=== PATIENT | male | born 1960 | race Caucasian/White ===

== ENCOUNTER → 2016-05-17 | Outpatient (CLI) | payer OTHER | LOC: CIMAGING 10:55 | PROVIDERS: ATTEND Internal Medicine Cardiovascular Disease | DX: I25.10 Atherosclerotic heart disease of native coronary artery without angina pectoris (principal) | CPT/HCPCS: 93880-PO ==

== ENCOUNTER → 2017-01-12 | Outpatient (CLI) | payer OTHER | LOC: BMCIMAGING 17:12 | PROVIDERS: ATTEND Family Medicine | DX: S69.92XA Unspecified injury of left wrist, hand and finger(s), initial encounter (principal) ==

== ENCOUNTER → 2018-02-17 | Outpatient (CLI) | payer OTHER | LOC: BMCIMAGING 08:26 | PROVIDERS: ATTEND Physician Assistant | DX: K76.89 Other specified diseases of liver (principal) ==